=== PATIENT | male | born 1970 | race Caucasian/White ===

== ENCOUNTER 2023-01-10 14:54 | Emergency (ER) | payer BC, OTHER ==
[2023-01-10 15:00] VITALS: BP 106/70; PULSE 79; RESP 18; TEMP 98.4; BMI 25.8
[2023-01-10] MEDS ORDERED: LIDOCAINE 2%/EPINEPHRINE 1:100000 (50 ML MD VIAL) PNB ONE (17:23)
[2023-01-10] MEDS ORDERED: LIDOCAINE HCL/EPINEPHRINE/PF 10 ML VIAL IM ONE (17:39)
[2023-01-10] MEDS ORDERED: LIDOCAINE HCL 2% (20ML MULTI-DOSE VIAL) ONE (17:41)
== END 2023-01-10 18:10 | disposition home or self-care (01) ==
LOC: JER 14:54
PROC: 0HQLXZZ Repair Left Lower Leg Skin, External Approach (ICD-10-PCS; principal; 2023-01-10)
DX: S81.812A Laceration without foreign body, left lower leg, initial encounter (principal); W21.03XA Struck by baseball, initial encounter; Y93.9 Activity, unspecified; Y92.830 Public park as the place of occurrence of the external cause
CPT/HCPCS: 99282-25